=== PATIENT | female | born 1960 | race African-American/Black ===

== ENCOUNTER 2019-02-21 15:54 | Emergency (ER) | payer OTHER ==
[~2019-02-21] VITALS: Ht 175.3 cm; Wt 89.8 kg
[2019-02-21 15:54] VITALS: BP 116/71
[~2019-02-21 15:54] MED LIST: ADULT LOW DOSE81 MG PO; AMBIEN 5 MG TABL5 M1 PO; AMOXICILLIN875 MG PO; CARVEDILOL25 MG; COUMADIN 5 MG TA5 M1 PO; COZAAR 25 MG TA25 M1; CYCLOBENZAPRINE5 MG PO; FLEXERIL PO; HYDROCODONE-AP1 EAC6 PO; LABETALOL 100100 MG GT; LASIX 40 MG TAB40 MG PO; MACROBID 100 M100 M1 PO; NORCO 5-325 TA1 EACH PO; PERCOCET 5-3251 EACH PO; PHENERGAN 25 MG25 M1 PO; POTASSIUM20; PREDNISONE 20 M20 MG PO; PREDNISONE50 MG PO; PRINIVIL5 MG PO; TRAMADOL 50 MG50 MG PO; ULTRAM 50MG TAB50 MG PO; VITAMIN D1000 UNI1 PO; ZOFRAN ODT4 MG PO
[2019-02-21 16:13] LABS: URINE BILIRUBIN NEGATIVE (Negative); URINE BLOOD TRACE (Negative); URINE COLOR YELLOW; URINE GLUCOSE-RANDOM* NEGATIVE (Negative); URINE KETONES NEGATIVE (Negative); URINE LEUKOCYTES-REFLEX 3+ (Negative); URINE NITRITE-REFLEX POSITIVE (Negative); URINE PROTEIN (DIPSTICK) NEGATIVE (Negative); URINE UROBILINOGEN 0.2 E.U./dl (0.2-1.0)
[2019-02-21 16:14] LABS: URINE CLARITY HAZY
[2019-02-21 16:17] LABS: SQUAMOUS 4-10 Moderate /LPF (0-3)
[2019-02-21 16:18] LABS: BACTERIA-REFLEX >30 Many /HPF (None Seen); CASTS None Seen /LPF (None Seen); CRYSTALS None Seen /LPF (None Seen); URINE RBC 0-2 Rare /HPF (0-2); URINE WBC-REFLEX >25 Many /HPF (0-5)
[2019-02-21] MEDS ORDERED: MACROBID 100 M100 M1 PO (16:25)
== END 2019-02-21 16:40 | disposition home or self-care (01) ==
LOC: ER 15:54
PROVIDERS: Emergency Medicine
DX: N39.0 Urinary tract infection, site not specified (principal); Z95.0 Presence of cardiac pacemaker